=== PATIENT | male | born 1955 | race Caucasian/White ===

== ENCOUNTER → 2020-07-18 | Outpatient (CLI) | payer OTHER ==
[~2020-07-18] MED LIST: BACTRIM DS TAB1 EACH PO; CALCIUM CARBON500 MG PO; CARVEDILOL3.125 MG PO; GABAPENTIN800 M1 PO; HYDROCHLOROTH12.5 M1 PO; NORVASC5 MG PO; OXCARBAZEPINE300 MG PO; SERTRALINE HCL50 MG PO; TERAZOSIN HCL5 MG PO; VITAMIN B-121000 MC2 SUBLING; VITAMIN D350 MCG PO
== END ==
LOC: LAB 10:27
PROVIDERS: ATTEND Otolaryngology
DX: Z01.812 Encounter for preprocedural laboratory examination (principal); Z20.828 Contact with and (suspected) exposure to other viral communicable diseases

== ENCOUNTER 2020-07-20 08:24 | Day surgery (SDC) | payer OTHER ==
[2020-07-18 13:33] LABS: HEMATOCRIT 41.4 % (42.0-52.0); HEMOGLOBIN 13.9 gm/dL (14.0-18.0); MCH 33.7 pg (26.0-34.0); MCHC 33.5 g/dL (28.0-37.0); MCV 100.5 fL (80.0-100.0); RBC 4.12 mil/uL (4.50-6.00); RDW 12.1 % (10.5-14.5); WBC 4.5 thou/uL (4.0-11.0)
[2020-07-18 13:51] LABS: CALCIUM 8.9 mg/dL (8.5-10.1); CREATININE 1.1 mg/dL (0.7-1.3); POTASSIUM 4.4 mmol/L (3.5-5.1)
[~2020-07-20] VITALS: Ht 167.6 cm; Wt 83.0 kg
[2020-07-20 08:57] VITALS: BP 140/89
[2020-07-20 13:14] VITALS: BP 140/89
--- NOTE | 2020-07-24 16:06 | O ---
[facility] [place] [address] OPERATIVE REPORT Name: MICAELA ENRIQUE Room #: DEP [facility] [place] M.R.#: [id number] Admission: 07/20/20 Attend Phys: Charles Castellanos MD Discharge: 07/20/20 Date of : 53 Report #: [id number] THIS REPORT FOR: cc: JONATHAN REYES Physician not on staff Charles Castellanos MD ~ CC: Charles Castellanos Physician staff JONATHAN Reyes DATE OF SERVICE: 07/20/2020 PRIMARY CARE PHYSICIAN: Dr. Jonathan Reyes PREOPERATIVE DIAGNOSES: 1. 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 2. Complex Mohs defect of right nasal ala and medial cheek. PROCEDURES PERFORMED: 1. Adjacent tissue transfer, right nose more than 15 square cm. 2. Paramedian forehead flap. 3. Septal cartilage graft harvest. 4. Intermediate wound closure. PRIMARY SURGEON: Charles Castellanos M.D. ASSISTANTS: None. ANESTHESIA: General. COMPLICATIONS: None. SPECIMENS: None. ESTIMATED BLOOD LOSS: 30 mL. INDICATIONS FOR THE PROCEDURE: The patient is a 65-year-old male with a recent history of basal cell carcinoma of the right nasal ala that required Mohs micrographic excision for treatment. This resulted in a very complex defect of the right nasal ala and medial cheek for which he was referred to me for reconstruction. He was counseled on what was necessary to reconstruct this and agreed to proceed with the procedure as outlined above and signed consent in the office. [address] [address] OPERATIVE REPORT Name: MICAELA ENRIQUE Room #: DEP [facility] [place] M.R.#: [id number] Admission: 07/20/20 Attend Phys: Charles Castellanos MD Discharge: 07/20/20 Date of : 53 Report #: [id number] DESCRIPTION OF PROCEDURE: The patient was identified in the preoperative area before being transported to the operating room and placed supine on the operating table. At this point, general anesthesia was induced and a timeout was called to ensure the patient identity and procedure to be performed. Next, the right nose was injected locally with 1% lidocaine 1:100,000 epinephrine solution including the nasal septum, right nasal ala, medial cheek and the right supraorbital rim. Next, the patient was prepped and draped in the normal sterile fashion and first starting with a septal cartilage harvest graft, a right-sided hemitransfixion incision was made, and a subperichondrial plane was developed. This was elevated back to the bony cartilaginous junction and approximately 2 x 1 cm piece of septal cartilage was harvested. This was set on the back table in a saline bath. The hemitransfixion incision was then closed. Attention was then turned to a right vestibular skin advancement flap. This was elevated from its subcutaneous portions and a releasing incision was made posteriorly just in front of the inferior turbinate. This allowed good movement anteriorly for which to close the inner layer. Next, I fashioned the septal cartilage into an alar rim graft for support. This was approximately 2 cm long x 8 mm wide. This was sutured into position using 4-0 chromic suture placed in a full thickness fashion through the vestibular skin. Next, a template was designed based on the contralateral ala and transposed to the superior forehead above the right supratrochlear neurovascular bundle. This was traced on the forehead followed by skin incision through the skin down to a supraperiosteal layer, which was carried to approximately 1.5 cm superior to the supraorbital rim where a periosteal incision was made and then a subperiosteal plane was developed and continued down over the supraorbital rim protecting the neurovascular bundle of the supratrochlear artery. Once this was performed, there was good release and plenty of length to inset the flap into the aforementioned defect. This was sutured into position using 5-0 fast absorbing gut around its periphery in an interrupted fashion. Next, attention was turned to closing the patient's forehead using 2-0 Vicryl sutures placed in a galeal plane. The forehead was reapproximated. The superior aspect would not come close; therefore, releasing incisions were made along the anterior and frontotemporal recession hairlines to allow adequate elevation and advancement of the skin flaps so that they would close more easily. These were closed along the hairline with 5-0 fast absorbing gut and vertically along the incision using 4-0 nylon suture placed in a running locking fashion. Finally, the right nasal cavity received a Silastic splint, which was sutured through the septum using 3-0 nylon suture followed by dressing the wound with Xeroform gauze around the skin pedicle and copious amounts of triple antibiotic ointment to all of the incision lines. Final check for hemostasis was performed and there was no more noted bleeding. The patient was returned to Anesthesia where he was reversed and transported to the PACU in stable condition. DISPOSITION: The patient may be discharged from the hospital after meeting discharge criteria in the PACU. He has been given prescriptions for pain [address] [address] OPERATIVE REPORT Name: MICAELA ENRIQUE Room #: DEP [facility]#: [id number] Admission: 07/20/20 Attend Phys: Charles Castellanos MD Discharge: 07/20/20 Date of : 53 Report #: [id number] medication and antibiotics. He should care for the wound several times a day, cleaning it and applying triple antibiotic ointment to the incisions. I will see him in 1 week's time for a wound check and to remove stitches. <ELECTRONICALLY SIGNED> By: Charles Castellanos MD 07/24/20 1606 [id number] 1325 Charles Castellanos MD /nt
== END 2020-07-20 13:50 | disposition home or self-care (01) ==
LOC: OR → TBA 08:25 → OR 09:19
PROVIDERS: ATTEND Otolaryngology
DX: M95.0 Acquired deformity of nose (principal); M95.2 Other acquired deformity of head; C44.321 Squamous cell carcinoma of skin of nose; C44.329 Squamous cell carcinoma of skin of other parts of face; I10 Essential (primary) hypertension; Z98.890 Other specified postprocedural states; Z79.899 Other long term (current) drug therapy; Z85.828 Personal history of other malignant neoplasm of skin; Z87.891 Personal history of nicotine dependence; Z90.49 Acquired absence of other specified parts of digestive tract; Z98.41 Cataract extraction status, right eye; Z98.42 Cataract extraction status, left eye
CPT/HCPCS: 50010; 50101; 50386; 50403; 51316; 51412; 56526; 56527; 56528; 57006; 62110; 62900; 70005